=== PATIENT | male | born 1950 | race Caucasian/White ===

== ENCOUNTER 2016-11-11 11:59 | Outpatient (CLI) | payer OTHER ==
--- NOTE | 2016-11-11 12:30 | DIAGNOSTIC IMAGING REPORT ---
PROCEDURE: XR SHOULDER 2 OR MORE VW-RIGHT INDICATION: TRAMATIC HEMATOMA OF RIGHT UPPER ARM,INITIAL ENCOUNTER TECHNIQUE: Three views. COMPARISON: None. FINDINGS: Osseous structures and joint spaces are normal. IMPRESSION: 1. Normal right shoulder.
== END 2016-11-11 23:00 ==
LOC: XR SRH 11:59
DX: S40.021A Contusion of right upper arm, initial encounter (principal)

== ENCOUNTER 2016-11-12 09:52 | Outpatient (CLI) | payer OTHER ==
--- NOTE | 2016-11-12 10:38 | DIAGNOSTIC IMAGING REPORT ---
PROCEDURE: US NONVASCULAR EXTREMITY-RIGHT INDICATION: TRAUMATIC HEMATOMA OF RT UPPER ARM TECHNIQUE: Ludwig scale and color Doppler sonographic images of the anterior right upper arm were obtained COMPARISON: None. FINDINGS: There is a heterogeneous ovoid mass which appears immediately adjacent to the biceps muscle, probably within the superficial fascia, pushing aside the muscle tissue. It measures 8.2 cm in length by 2.3 x 2.9 cm. The attachment of the long and short heads of the biceps tendon is not well assessed by ultrasound. IMPRESSION: 1. Probable intramuscular hematoma in the anterior upper arm measuring 8.2 cm in length. 2. MRI of the shoulder to assess proximal attachments of the biceps tendons is recommended.
== END 2016-11-12 23:00 ==
LOC: US SRH 09:52
DX: S40.021A Contusion of right upper arm, initial encounter (principal)

== ENCOUNTER 2016-11-25 12:19 | Outpatient (CLI) | payer OTHER ==
--- NOTE | 2016-11-25 14:57 | DIAGNOSTIC IMAGING REPORT ---
PROCEDURE: MR UPPER EXT NON-JT WO CONT-RT INDICATION: TRAUMATIC HEMATOMA OF RT UPPER ARM TECHNIQUE: PD and FAT-SAT PD, axial, and coronal-oblique images. PD and STIR sagittal-oblique images. COMPARISON: Right upper arm ultrasound 11/12/2016. FINDINGS: There is a tear of the long head of the bicipital tendon which is probably complete versus sub total. There is thickening and retraction of the tendon more distally with an adjacent hematoma in the upper arm. Moderate AC joint degenerative changes with type 2 acromion resulting in mild impingement.. Single or possibly two insertional tears of the supraspinatus tendon anteriorly as well as a small intrasubstance tear. Glenoid labrum grossly normal. Small subdeltoid and sub acromial effusions. Small joint effusion. Normal glenohumeral ligaments. No suspicious osseous lesions. IMPRESSION: 1. Complete versus subtotal tear of the long head of the bicipital tendon with distal hematoma in the upper arm 2. Impingement 3. Single or possibly 2 insertional tears of the supraspinatus tendon distally with a small intrasubstance tear 4. Small subdeltoid and subacromial effusions 5. Small joint effusion
== END 2016-11-25 23:00 ==
LOC: MRI SRH 12:19
DX: S40.021A Contusion of right upper arm, initial encounter (principal); M25.411 Effusion, right shoulder; M25.80 Other specified joint disorders, unspecified joint